=== PATIENT | male | born 1960 | race Caucasian/White ===

== ENCOUNTER 2019-12-05 07:06 | Inpatient (IN) | payer OTHER ==
[~2019-12-05] VITALS: Ht 175.3 cm; Wt 75.1 kg
[2019-12-05] MEDS ORDERED: [UNRECOGNIZED DRUG - OTHER] (07:20)
[2019-12-05] MEDS ORDERED: BP MED (07:20)
[2019-12-05] MEDS ORDERED: INHALER (07:20)
[2019-12-05] MEDS ORDERED: [UNRECOGNIZED DRUG - REMARK] (07:20)
[2019-12-05 08:09] LABS: APTT 32.9 SECONDS (22.8-39.4); INR 1.07 (0.85-1.17); PROTIME 13.9 SECONDS (11.6-15.0)
[2019-12-05 08:10] LABS: D-DIMER-QUANTITATIVE 1.26 ug/mLFEU (0.20-0.54); HEMATOCRIT 38.8 % (42.0-54.0); HEMOGLOBIN 12.7 g/dL (13.5-17.5); LYMPHOCYTES 9.7 % (15-50); MCH 32.2 pg (26.0-34.0); MCHC 32.7 g/dL (31.0-37.0); MCV 98.2 fL (80.0-100.0); MEAN PLATELET VOLUME 8.9 fL (7.4-10.4); NEUTROPHILS 84.4 % (40-80); PLATELET COUNT 267 10x3/uL (130-400); RBC 3.95 10x6/uL (4.20-6.10); RDW 13.2 % (11.5-14.5); WBC 10.9 10x3/uL (4.8-10.8)
[2019-12-05 08:15] LABS: CALC OSMOLALITY 277 mosm/kg (275-300); CARBON DIOXIDE 25.2 mmol/L (21.0-32.0); CHLORIDE - SERUM 105 mmol/L (98-107); CREATININE - SERUM 1.1 mg/dL (0.6-1.3); GLUCOSE 135 mg/dL (74-106); POTASSIUM - SERUM 4.2 mmol/L (3.5-5.1); SODIUM 137 mmol/L (136-145); UREA NITROGEN 17 mg/dL (7-18); eGFR NON AFRICAN AMERICAN 73 mL/min (90-120)
[2019-12-05 08:18] VITALS: BP 108/74
[2019-12-05 08:33] LABS: ALBUMIN 3.1 g/dL (3.4-5.0); ALKALINE PHOSPHATASE 113 U/L (30-120); ALT (SGPT) 71 U/L (10-68); BILIRUBIN - TOTAL 0.42 mg/dL (0.2-1.3); CKMB 2.6 U/L (0.0-3.6); CREATINE KINASE 60 UL (21-232); MAGNESIUM - SERUM 2.1 mg/dL (1.8-2.4); PRO BNP 2721 pg/mL (0-125)
[2019-12-05 08:44] LABS: TROPONIN-I < 0.017 ng/mL (0.000-0.060)
--- NOTE | 2019-12-05 12:23 | NUR ---
PT VOIDED 1000ML CLEAR YELLOW URINE. PT LAYING IN BED RESPIRATIONS ARE EVEN AND UNLABORED. NO DISTRESS NOTED. WILL CONTINUE TO MONITOR.
[2019-12-05 12:46] VITALS: BP 116/80
--- NOTE | 2019-12-05 14:26 | NUR ---
PATIENT ARRIVED TO UNIT VIA GERNERY AT THIS TIME. PATIENT PLACED IN DROPLET ISOLATION FOR COVID PUI UNTIL TEST RESULTS RECEIVED.
[2019-12-05 15:52] VITALS: BP 105/66
--- NOTE | 2019-12-05 17:37 | NUR ---
SHARON WITH LAB REPORTS COVID TEST NEGATIVE.
--- NOTE | 2019-12-05 17:48 | NUR ---
PATIENT NOTIFIED HIS COVID TEST IS NEGATIVE. PATIENT REMOVED FROM DROPLET ISOLATION.
[2019-12-05 20:28] VITALS: BP 103/64
[2019-12-05 21:18] LABS: BILIRUBIN NEGATIVE (NEGATIVE); GLUCOSE 1000 mg/dL (NEGATIVE); KETONE NEGATIVE (NEGATIVE); NITRITE NEGATIVE (NEGATIVE); SPECIFIC GRAVITY 1.015 (1.005-1.020); UROBILINOGEN NORMAL (NORMAL)
[2019-12-05 21:27] LABS: UDS - AMPHET POSITIVE QUAL (NEGATIVE); UDS - BARB NEGATIVE QUAL (NEGATIVE); UDS - BENZO NEGATIVE QUAL (NEGATIVE); UDS - COCAINE NEGATIVE QUAL (NEGATIVE); UDS - OPIATE NEGATIVE QUAL (NEGATIVE); UDS - PCP NEGATIVE QUAL (NEGATIVE); UDS - THC NEGATIVE QUAL (NEGATIVE)
[2019-12-06 05:00] VITALS: BP 102/65
[2019-12-06 06:44] LABS: HEMATOCRIT 40.2 % (42.0-54.0); HEMOGLOBIN 13.2 g/dL (13.5-17.5); LYMPHOCYTES 6.7 % (15-50); MCH 31.7 pg (26.0-34.0); MCHC 32.8 g/dL (31.0-37.0); MCV 96.6 fL (80.0-100.0); MEAN PLATELET VOLUME 8.7 fL (7.4-10.4); NEUTROPHILS 91.3 % (40-80); RBC 4.16 10x6/uL (4.20-6.10); RDW 13.4 % (11.5-14.5)
[2019-12-06 06:45] LABS: PLATELET COUNT 323 10x3/uL (130-400); WBC 15.9 10x3/uL (4.8-10.8)
--- NOTE | 2019-12-06 07:00 | NUR ---
RECEIVED REPORT. ASSUMED CARE OF PATIENT. PATIENT RESTING IN BED WITH EYES OPEN. RESP EVEN AND UNLABORED. CALL LIGHT WITHIN REACH. WHITE BOARD UPDATED. BEDSIDE SHIFT REPORT COMPLETE. PATIENT INQUIRING ABOUT AM MEAL TIMES. NO DISTRESS. DENIES ANY FURTHER NEEDS AT THIS TIME.
[2019-12-06 07:15] LABS: ALKALINE PHOSPHATASE 103 U/L (30-120); ALT (SGPT) 52 U/L (10-68); BILIRUBIN - TOTAL 0.44 mg/dL (0.2-1.3); C-REACTIVE PROTEIN 1.6 mg/dL (0.0-0.9); CALC OSMOLALITY 285 mosm/kg (275-300); CARBON DIOXIDE 25.4 mmol/L (21.0-32.0); CHLORIDE - SERUM 104 mmol/L (98-107); GLUCOSE 176 mg/dL (74-106); LDH 135 U/L (85-227); POTASSIUM - SERUM 4.2 mmol/L (3.5-5.1); SODIUM 139 mmol/L (136-145); TROPONIN-I < 0.017 ng/mL (0.000-0.060); UREA NITROGEN 23 mg/dL (7-18); eGFR NON AFRICAN AMERICAN 82 mL/min (90-120)
[2019-12-06 07:48] LABS: ERYTHROCYTE SEDIMENTATION RATE 33 mm/hr (0-20)
[2019-12-06 10:06] VITALS: BP 103/70
--- NOTE | 2019-12-06 12:39 | NUR ---
NO DISTRESS. OUTSIDE FOOD DELIVERED TO PATIENT. CALL LIGHT WITHIN REACH.
--- NOTE | 2019-12-06 14:19 | NUR ---
TRANSFERRED TO ROOM 2139. REPORT GIVEN TO NURSE ASSUMING CARE OF PATIENT.
[2019-12-06 18:06] VITALS: BP 118/73
--- NOTE | 2019-12-06 19:20 | NUR ---
I HAD VISITED ROOM EARLIER AND GAVE PRN FOR HEADACHE AT THIS TIME BED LOW AND LOCKED PT HAS CALL LIGHT NEED FOR WATER ADRESSWD ALSO
[2019-12-06 21:30] VITALS: BP 95/58
[2019-12-07 04:29] VITALS: BP 120/66
--- NOTE | 2019-12-07 06:30 | NUR ---
I have reviewed this patient and I concur with the Shift Assessment completed by the Licensed Practical Nurse today this shift.
[2019-12-07 06:50] LABS: HEMATOCRIT 40.1 % (42.0-54.0); HEMOGLOBIN 13.2 g/dL (13.5-17.5); LYMPHOCYTES 6.4 % (15-50); MCH 32.1 pg (26.0-34.0); MCHC 32.9 g/dL (31.0-37.0); MCV 97.6 fL (80.0-100.0); PLATELET COUNT 297 10x3/uL (130-400); RBC 4.11 10x6/uL (4.20-6.10); RDW 13.7 % (11.5-14.5); WBC 14.1 10x3/uL (4.8-10.8)
[2019-12-07 07:16] LABS: ANION GAP 11.3 mmol/L (8-16); CALCIUM 8.7 mg/dL (8.5-10.1); CREATININE - SERUM 1.1 mg/dL (0.6-1.3); MAGNESIUM - SERUM 2.2 mg/dL (1.8-2.4); POTASSIUM - SERUM 4.3 mmol/L (3.5-5.1)
--- NOTE | 2019-12-07 07:33 | NUR ---
REPORT RECIEVED. PT RESTING QUIETLY RR EVEN AND UNLABORED ON RA. PT HAS A R FA PIV THAT IS SL. BED LOCKED AND IN LOWEST POSITION, CALL LIGHT WITHIN REACH. WILL CTM
[2019-12-07 09:00] VITALS: BP 105/74
[2019-12-07 10:17] VITALS: Ht 175.3 cm; Wt 75.1 kg
[2019-12-07 12:00] VITALS: BP 116/76
[2019-12-07 15:00] VITALS: BP 125/70
--- NOTE | 2019-12-07 17:00 | NUR ---
I have reviewed this patient and I concur with the Shift Assessment completed by the Licensed Practical Nurse today this shift.
--- NOTE | 2019-12-07 19:18 | NUR ---
APPEARS RESTING WITH EYES CLOSED BED IS LOW AND LOCKED CALL LIGHT IS WITH PT
--- NOTE | 2019-12-07 19:50 | NUR ---
1950 PT REPORTS SOB BUT REFUSES TO WEAR O2 LCTA SPO2 99% PT ASKED FOR ICE WATER I INSTRUCTED TO SIP SLOWLY AND WILL GIVE LASIX EARLY PT IS EXPERIENCING SOB RIGHT AFTER 250 IV PIGGY BAG X2 DAYS NOW
[2019-12-07 21:21] VITALS: BP 106/70
[2019-12-08 00:39] VITALS: BP 99/64
--- NOTE | 2019-12-08 05:00 | NUR ---
I have reviewed this patient and I concur with the Shift Assessment completed by the Licensed Practical Nurse today this shift.
[2019-12-08 06:27] VITALS: BP 114/75
[2019-12-08 06:32] LABS: ANION GAP 15.5 mmol/L (8-16); CALCIUM 9.3 mg/dL (8.5-10.1); CARBON DIOXIDE 25.6 mmol/L (21.0-32.0); CREATININE - SERUM 1.1 mg/dL (0.6-1.3); MAGNESIUM - SERUM 2.4 mg/dL (1.8-2.4)
[2019-12-08 06:35] LABS: POTASSIUM - SERUM 5.1 mmol/L (3.5-5.1)
--- NOTE | 2019-12-08 07:30 | NUR ---
REPORT RECIEVED. PT SITTING FOLWERS IN BED. RR EVEN AND UNLABORED ON RA. PT HAS A R FA PIV THAT IS SL. BED LOCKED AND IN LOWEST POSITION, CALL LIGHT WITHIN REACH. WILL CTM
[2019-12-08 08:13] LABS: IMMUNOGLOBULIN A 168 mg/dL (90-386); IMMUNOGLOBULIN G 1366 mg/dL (603-1613); IMMUNOGLOBULIN M 150 mg/dL (20-172)
[2019-12-08 08:39] LABS: HEMATOCRIT 44.6 % (42.0-54.0); HEMOGLOBIN 14.4 g/dL (13.5-17.5); LYMPHOCYTES 5.7 % (15-50); MCH 31.6 pg (26.0-34.0); MCHC 32.3 g/dL (31.0-37.0); MCV 97.8 fL (80.0-100.0); MEAN PLATELET VOLUME 9.5 fL (7.4-10.4); NEUTROPHILS 91.2 % (40-80); PLATELET COUNT 345 10x3/uL (130-400); RBC 4.56 10x6/uL (4.20-6.10); RDW 13.8 % (11.5-14.5)
[2019-12-08 08:43] LABS: WBC 19.2 10x3/uL (4.8-10.8)
[2019-12-08 10:49] VITALS: BP 118/84
[2019-12-08 12:21] VITALS: BP 128/80
[2019-12-08] MEDS ORDERED: AZITHROMYCIN500 MG PO (16:34)
[2019-12-08] MEDS ORDERED: OMNICEF300 MG PO (16:35)
[2019-12-08] MEDS ORDERED: PREDNISONE10 MG PO (16:35)
[2019-12-08 16:40] VITALS: BP 120/78
[2019-12-08 17:09] LABS: ANA REFLEX - DIRECT Negative (Negative)
--- NOTE | 2019-12-08 17:24 | NUR ---
DC PAPERWORK GONE OVER AND SIGNED WITH PT. ALL QUESTIONS ANSWERED. PIV REMOVED CATH TIP FULLY INTACT. TELEMETRY REMOVED AND RETURNED TO SENIOR TEST ANALYST. ALL VALUBLES TAKEN WITH PT. PT WHEELED TO ER ENTRANCE, FRIEND TO TAKE PT HOME.
[2019-12-09 11:11] LABS: PROCALCITONIN 0.07 ng/mL (0.00-0.08)
[2019-12-10 09:13] LABS: IMMUNOGLOBULIN E 170 IU/mL (6-495)
== END 2019-12-08 17:27 | disposition home or self-care (01) | DRG 291 ==
LOC: D.ER 07:06 → D.M2 13:18
PROVIDERS: Family Medicine; Internal Medicine Pulmonary Disease; ADMIT Family Medicine; ATTEND Family Medicine
DX: I50.21 Acute systolic (congestive) heart failure (principal); J18.9 Pneumonia, unspecified organism; J96.01 Acute respiratory failure with hypoxia; J44.0 Chronic obstructive pulmonary disease with (acute) lower respiratory infection; J44.1 Chronic obstructive pulmonary disease with (acute) exacerbation; I42.9 Cardiomyopathy, unspecified; J98.11 Atelectasis; K21.9 Gastro-esophageal reflux disease without esophagitis; D64.9 Anemia, unspecified

== ENCOUNTER 2020-02-05 16:10 | Emergency (ER) | payer OTHER ==
[~2020-02-05] VITALS: Ht 175.3 cm; Wt 72.8 kg
[~2020-02-05 16:10] MED LIST: AZITHROMYCIN500 MG PO; BP MED; INHALER; OMNICEF300 MG PO; PREDNISONE10 MG PO; [UNRECOGNIZED DRUG - OTHER]; [UNRECOGNIZED DRUG - REMARK]
[2020-02-05 16:12] VITALS: Ht 175.3 cm; Wt 72.8 kg
[2020-02-05 17:00] LABS: BASOPHILS 0.2 % (0-2); EOSINOPHILS 1.9 % (0-7); HEMATOCRIT 39.7 % (42.0-54.0); HEMOGLOBIN 12.8 g/dL (13.5-17.5); IMMATURE GRANULOCYTES 0.2 % (0-5); LYMPHOCYTES 18.1 % (15-50); MCH 31.4 pg (26.0-34.0); MCHC 32.2 g/dL (31.0-37.0); MCV 97.5 fL (80.0-100.0); MEAN PLATELET VOLUME 9.5 fL (7.4-10.4); MONOCYTES 5.4 % (2-11); NEUTROPHILS 74.2 % (40-80); PLATELET COUNT 294 10x3/uL (130-400); RBC 4.07 10x6/uL (4.20-6.10); RDW 14.3 % (11.5-14.5)
[2020-02-05 17:09] LABS: APTT 31.8 SECONDS (22.8-39.4); INR 1.14 (0.85-1.17); PROTIME 14.5 SECONDS (11.6-15.0)
[2020-02-05 17:10] LABS: CALC OSMOLALITY 286 mosm/kg (275-300); CALCIUM 8.4 mg/dL (8.5-10.1); CARBON DIOXIDE 25.3 mmol/L (21.0-32.0); CHLORIDE - SERUM 105 mmol/L (98-107); CREATININE - SERUM 1.2 mg/dL (0.6-1.3); D-DIMER-QUANTITATIVE 1.42 ug/mLFEU (0.20-0.54); GLUCOSE 173 mg/dL (74-106); POTASSIUM - SERUM 4.5 mmol/L (3.5-5.1); SODIUM 139 mmol/L (136-145); UREA NITROGEN 26 mg/dL (7-18); eGFR NON AFRICAN AMERICAN 66 mL/min (90-120)
[2020-02-05 17:26] LABS: ALBUMIN 3.1 g/dL (3.4-5.0); ALKALINE PHOSPHATASE 92 U/L (30-120); ALT (SGPT) 61 U/L (10-68); BILIRUBIN - TOTAL 0.45 mg/dL (0.2-1.3); CKMB 1.6 U/L (0.0-3.6); CREATINE KINASE 31 UL (21-232); PRO BNP 5283 pg/mL (0-125); PROTEIN - SERUM 6.9 g/dL (6.4-8.2); TROPONIN-I 0.016 ng/mL (0.000-0.060)
[2020-02-05 18:12] VITALS: BP 107/80
[2020-02-05] MEDS ORDERED: KLONOPIN0.5 MG PO (19:15)
[2020-02-05] MEDS ORDERED: LEVAQUIN750 MG PO (19:15)
== END 2020-02-05 20:17 | disposition home or self-care (01) ==
LOC: D.ER 16:10
PROVIDERS: Family Medicine
DX: J18.8 Other pneumonia, unspecified organism (principal); R06.02 Shortness of breath; I50.9 Heart failure, unspecified

== ENCOUNTER → 2020-02-10 12:44 | Outpatient (CLI) | payer OTHER ==
[2020-02-05 16:12] VITALS: BMI 23.7
[~2020-02-10 12:44] MED LIST changes: +ATARAX 25 MG TA25 MG; +COREG12.5 MG; +FUROSEMIDE40 MG; +K-DUR20 MEQ; +KLONOPIN0.5 MG PO; +LEVAQUIN750 MG PO; +OMEPRAZOLE20 M1; +SYMBICORT 16010.2 GM; +TOPROL XL50 MG; +XOPENEX HFA15 GM
== END | disposition home or self-care (01) ==
LOC: D.HCCECHO 12:44
PROVIDERS: ATTEND Internal Medicine Cardiovascular Disease
DX: I50.9 Heart failure, unspecified (principal)

== ENCOUNTER 2020-02-12 11:57 | Emergency (ER) | payer OTHER ==
[~2020-02-12] VITALS: Ht 175.3 cm; Wt 75.0 kg
[~2020-02-12 11:57] MED LIST changes: -ATARAX 25 MG TA25 MG; -COREG12.5 MG; -FUROSEMIDE40 MG; -K-DUR20 MEQ; -OMEPRAZOLE20 M1; -SYMBICORT 16010.2 GM; -TOPROL XL50 MG; -XOPENEX HFA15 GM
[2020-02-12 12:03] VITALS: Ht 175.3 cm; Wt 75.0 kg
[2020-02-12 12:15] LABS: BASOPHILS 0.3 % (0-2); EOSINOPHILS 3.2 % (0-7); HEMATOCRIT 38.5 % (42.0-54.0); HEMOGLOBIN 12.4 g/dL (13.5-17.5); IMMATURE GRANULOCYTES 0.1 % (0-5); LYMPHOCYTES 20.5 % (15-50); MCH 31.2 pg (26.0-34.0); MCHC 32.2 g/dL (31.0-37.0); MCV 96.7 fL (80.0-100.0); MEAN PLATELET VOLUME 9.7 fL (7.4-10.4); MONOCYTES 7.8 % (2-11); NEUTROPHILS 68.1 % (40-80); RBC 3.98 10x6/uL (4.20-6.10); RDW 14.7 % (11.5-14.5); WBC 8.7 10x3/uL (4.8-10.8)
[2020-02-12] MEDS ORDERED: K-DUR20 MEQ (12:15)
[2020-02-12] MEDS ORDERED: TOPROL XL50 MG (12:16)
[2020-02-12] MEDS ORDERED: FUROSEMIDE40 MG (12:16)
[2020-02-12] MEDS ORDERED: COREG12.5 MG (12:17)
[2020-02-12] MEDS ORDERED: ATARAX 25 MG TA25 MG (12:17)
[2020-02-12] MEDS ORDERED: OMEPRAZOLE20 M1 (12:18)
[2020-02-12] MEDS ORDERED: SYMBICORT 16010.2 GM (12:18)
[2020-02-12] MEDS ORDERED: XOPENEX HFA15 GM (12:19)
[2020-02-12 12:22] LABS: CALC OSMOLALITY 287 mosm/kg (275-300); CALCIUM 9.4 mg/dL (8.5-10.1); CARBON DIOXIDE 25.4 mmol/L (21.0-32.0); CHLORIDE - SERUM 105 mmol/L (98-107); CREATININE - SERUM 1.2 mg/dL (0.6-1.3); GLUCOSE 147 mg/dL (74-106); SODIUM 139 mmol/L (136-145); UREA NITROGEN 31 mg/dL (7-18); eGFR NON AFRICAN AMERICAN 66 mL/min (90-120)
[2020-02-12 12:24] LABS: INR 1.31 (0.85-1.17); PROTIME 16.2 SECONDS (11.6-15.0)
[2020-02-12 12:25] LABS: APTT 32.3 SECONDS (22.8-39.4)
[2020-02-12 12:34] LABS: PLATELET COUNT 231 10x3/uL (130-400)
[2020-02-12 12:48] LABS: ALBUMIN 3.1 g/dL (3.4-5.0); ALKALINE PHOSPHATASE 104 U/L (30-120); ALT (SGPT) 150 U/L (10-68); BILIRUBIN - TOTAL 0.38 mg/dL (0.2-1.3); CKMB 1.3 U/L (0.0-3.6); CREATINE KINASE 53 UL (21-232); PRO BNP 7250 pg/mL (0-125); PROTEIN - SERUM 6.8 g/dL (6.4-8.2); TROPONIN-I < 0.017 ng/mL (0.000-0.060)
[2020-02-12 15:50] VITALS: BP 101/78
== END 2020-02-12 20:30 | disposition home or self-care (01) ==
LOC: D.ER 11:57
PROVIDERS: Family Medicine
DX: R06.02 Shortness of breath (principal); I50.9 Heart failure, unspecified

== ENCOUNTER 2020-02-22 13:32 | Inpatient (IN) | payer OTHER ==
[~2020-02-22] VITALS: Ht 175.3 cm; Wt 84.1 kg
[~2020-02-22 13:32] MED LIST changes: +ATARAX 25 MG TA25 MG; +COREG12.5 MG; +FUROSEMIDE40 MG PO; +K-DUR20 MEQ PO; +OMEPRAZOLE20 M1; +SYMBICORT 16010.2 GM; +TOPROL XL50 MG; +XOPENEX HFA15 GM
[2020-02-22 14:55] LABS: BASOPHILS 0.4 % (0-2); EOSINOPHILS 4.8 % (0-7); HEMATOCRIT 43.9 % (42.0-54.0); HEMOGLOBIN 13.9 g/dL (13.5-17.5); IMMATURE GRANULOCYTES 0.2 % (0-5); LYMPHOCYTES 15.9 % (15-50); MCH 30.9 pg (26.0-34.0); MCHC 31.7 g/dL (31.0-37.0); MCV 97.6 fL (80.0-100.0); MEAN PLATELET VOLUME 9.8 fL (7.4-10.4); MONOCYTES 5.3 % (2-11); NEUTROPHILS 73.4 % (40-80); RDW 14.9 % (11.5-14.5)
[2020-02-22 15:03] LABS: PLATELET COUNT 353 10x3/uL (130-400)
[2020-02-22 15:28] LABS: INR 1.04 (0.85-1.17); PROTIME 13.5 SECONDS (11.6-15.0)
[2020-02-22 15:29] LABS: APTT 32.8 SECONDS (22.8-39.4)
[2020-02-22 15:31] LABS: ALBUMIN 3.4 g/dL (3.4-5.0); ANION GAP 6.6 mmol/L (8-16); BILIRUBIN - TOTAL 0.51 mg/dL (0.2-1.3); CALCIUM 8.8 mg/dL (8.5-10.1); CARBON DIOXIDE 32.7 mmol/L (21.0-32.0); CREATININE - SERUM 1.2 mg/dL (0.6-1.3); PHOSPHOROUS 3.5 mg/dL (2.5-4.9); POTASSIUM - SERUM 4.3 mmol/L (3.5-5.1); PROTEIN - SERUM 7.9 g/dL (6.4-8.2); T4 THYROXIN - FREE 1.07 ng/dL (0.76-1.46); THYROID STIMULATING HORMONE 2.02 uIU/mL (0.36-3.74); URIC ACID 6.1 mg/dL (2.6-7.2)
[2020-02-22 16:04] LABS: BILIRUBIN NEGATIVE (NEGATIVE); KETONE NEGATIVE (NEGATIVE); NITRITE NEGATIVE (NEGATIVE); UROBILINOGEN NORMAL mg/dL (< 2)
[2020-02-29] VITALS (42 sets, daily range): BP systolic 97–139; BP diastolic 53–94; BMI 24.7; BMI 24.4
[2020-02-29 15:23] LABS: BASOPHILS 0 % (0-2); EOSINOPHILS 0 % (0-7); HEMATOCRIT 25.4 % (42.0-54.0); IMMATURE GRANULOCYTES 0.1 % (0-5); LYMPHOCYTES 9.8 % (15-50); MCH 30.4 pg (26.0-34.0); MCHC 31.5 g/dL (31.0-37.0); MCV 96.6 fL (80.0-100.0); MEAN PLATELET VOLUME 9.1 fL (7.4-10.4); NEUTROPHILS 85.1 % (40-80); RBC 2.63 10x6/uL (4.20-6.10); RDW 15.1 % (11.5-14.5); WBC 9.2 10x3/uL (4.8-10.8)
[2020-02-29 15:25] LABS: PLATELET COUNT 214 10x3/uL (130-400)
[2020-02-29 15:32] LABS: INR 1.37 (0.85-1.17); PROTIME 16.7 SECONDS (11.6-15.0)
--- NOTE | 2020-02-29 17:40 | NUR ---
1400 PT ARRIVED TO UNIT, MONITORS ATTACHED, LINES ZERO'ED. 1410 XRAY AT BEDSIDE - ASSISTED WITH CXR. 1417 DR WHEATLEY AT BEDSIDE, ADJUSTING S-G CATH. 1421 CONTINUES AT BEDSIDE ADJUSTING S-G CATH, ORDERS JORDYN OFF. 1433 LEVO DECREASED TO 0.02 MCK/KG/MIN. [address] WHEATLEY CONTINUES AT BEDSIDE, CXR X2 COMPLETED AND ORDERS TO TURN OF S-G MONITORING NOT PLACED CORRECTLY PER DR WHEATLEY. 1510 PER ABG RESULTS, K+ LOW AND H&H LOW, VERBAL ORDERS FOR 20 MEW K+ IV OVER 1 HOUR AND 1 UNIT PRBC, THIS WAS IMPLEMENTED. [address] KEENE ON UNIT, ORDERS RECIEVED TO START FENTANYL TITRATION INFUSION, 25-200 MCG/HR. 1700 VASOPRESSIN DECRESED TO 0.05. 1721 VASOPRESSIN DECREASED TO 0.04. 1733 DR WHEATLEY NOTIFIED THAT IABP MEAN AT 99, UPDATED ON GTT'S, ORDERS TO CUT VASOPRESSING IN HALF RECIEVED.
--- NOTE | 2020-02-29 19:02 | NUR ---
1807 DR WHEATLEY UPDATED, ORDERS TO DECREASE VASOPRESSIN TO 0.01 UNITS/HR RECIEVED AND COMPLETED.
--- NOTE | 2020-02-29 19:06 | NUR ---
UPDATED DR WHEATLEY, ORDERS FOR STAT ABG ABTAINED. RT NOTIFIED.
--- NOTE | 2020-02-29 19:23 | NUR ---
NOTIFIED DR WHEATLEY OF STAT ABG RESULTS, RECIEVED ORDERS TO STOP VASOPRESSIN AND DECREASE EPINEPHRINE GTT
[2020-03-01] VITALS (96 sets, daily range): BP systolic 87–136; BP diastolic 58–79; Ht 175.3 cm; Wt 84.1 kg
[2020-03-01 05:17] LABS: BASOPHILS 0.2 % (0-2); EOSINOPHILS 0.2 % (0-7); HEMATOCRIT 28.4 % (42.0-54.0); IMMATURE GRANULOCYTES 0.1 % (0-5); LYMPHOCYTES 10.8 % (15-50); MCH 29.6 pg (26.0-34.0); MCHC 31.7 g/dL (31.0-37.0); MEAN PLATELET VOLUME 9.3 fL (7.4-10.4); MONOCYTES 8.9 % (2-11); NEUTROPHILS 79.8 % (40-80); PLATELET COUNT 172 10x3/uL (130-400); RBC 3.04 10x6/uL (4.20-6.10); RDW 16.9 % (11.5-14.5); WBC 8.7 10x3/uL (4.8-10.8)
[2020-03-01 05:22] LABS: MCV 93.4 fL (80.0-100.0)
[2020-03-01 05:25] LABS: ALBUMIN 2.9 g/dL (3.4-5.0); ALKALINE PHOSPHATASE 67 U/L (30-120); ALT (SGPT) 32 U/L (10-68); CALC OSMOLALITY 288 mosm/kg (275-300); CALCIUM 7.9 mg/dL (8.5-10.1); CARBON DIOXIDE 30.5 mmol/L (21.0-32.0); CHLORIDE - SERUM 109 mmol/L (98-107); CREATININE - SERUM 0.9 mg/dL (0.6-1.3); GLUCOSE 145 mg/dL (74-106); MAGNESIUM - SERUM 2.4 mg/dL (1.8-2.4); POTASSIUM - SERUM 3.7 mmol/L (3.5-5.1); PROTEIN - SERUM 5.9 g/dL (6.4-8.2); SODIUM 142 mmol/L (136-145); UREA NITROGEN 22 mg/dL (7-18); eGFR NON AFRICAN AMERICAN > 90 mL/min (90-120)
--- NOTE | 2020-03-01 06:00 | NUR ---
DR WHEATLEY UPDATED ON PT CONDITION, ORDERS RECIEVED TO STOP EPI GTT AND GIVE 250CC NS BOLUS
--- NOTE | 2020-03-01 07:54 | NUR ---
DR WHEATLEY IN ROOM, CHANGED IABP TO 1:2 AND ORDERED MILRINONE TO 0.375 MCK/KG/MIN. UNASSISTED 104/65, ASSISTED 98/60 MEAN 86 DEC. 118.
--- NOTE | 2020-03-01 10:34 | NUR ---
FARHAD العلي NOTIFIED OF DECREASED UOP.
--- NOTE | 2020-03-01 10:41 | NUR ---
FARHAD IN PT ROOM ASSESSING.
--- NOTE | 2020-03-01 11:35 | NUR ---
NOTIFIED FARHAD العلي OF CONTINUED DECREASED UOP, STATED SHE WOULD NOTIFY DR WHEATLEY.
--- NOTE | 2020-03-01 12:00 | NUR ---
NOTIFIED FARHAD العلي OF CURRENT HOUR UOP OF 34ML.
--- NOTE | 2020-03-01 12:26 | NUR ---
PER FARHAD العلي, DR WHEATLEY ORDERED 250ML NS BOLUS.
--- NOTE | 2020-03-01 14:05 | NUR ---
NOTIFIED FARHAD العلي OF LOW UOP.
--- NOTE | 2020-03-01 15:10 | NUR ---
FARHAD العلي NOTIFIED OF LOW UOP.
--- NOTE | 2020-03-01 16:01 | OP ---
PATIENT NAME: SHAMA CHAU MEDICAL RECORD: [id number] :62 LOCATION:[facility] ADMISSION DATE:02/29/20 SURGEON: ARMIN WHEATLEY MD DATE OF OPERATION: 02/29/2020 SURGEON: Armin Wheatley MD PROCEDURES PERFORMED: 1. Aortic valve replacement, 21 mm pericardial bioprosthesis. 2. Mitral valve annuloplasty 32 mm Physio. 3. Tricuspid valve annuloplasty. 4. Insertion of intraaortic balloon pump percutaneously via left common femoral artery utilizing ultrasound guidance, attempted micropuncture access right common femoral artery with ultrasound guidance, unsuccessful. PREOPERATIVE DIAGNOSES: Aortic stenosis, nonischemic cardiomyopathy, mitral regurgitation, tricuspid regurgitation, and chronic obstructive pulmonary disease. POSTOPERATIVE DIAGNOSES: Aortic stenosis, nonischemic cardiomyopathy, mitral regurgitation, tricuspid regurgitation, and chronic obstructive pulmonary disease. ANESTHESIA: General endotracheal anesthesia. ESTIMATED BLOOD LOSS: Total cardiopulmonary bypass with Cell Saver retransfusion, 4 FFP, 2 platelets. COMPLICATIONS: None. CONDITION: Critical. DISPOSITION: CV ICU. OPERATIVE FINDINGS: 1. Transesophageal echocardiography revealed severe aortic stenosis, worse than expected from preoperative transthoracic echo, severe central mitral regurgitation with good leaflet mobility and severe tricuspid regurgitation. Ejection fraction 25%. 2. Intraoperatively calcified aortic valve leaflets with mostly preserved annulus, anatomically normal mitral valve with moderate dilatation. No significant dilated left ventricular cavity and anatomically normal tricuspid valve. 3. Separation from cardiopulmonary bypass with no perivalvular aortic insufficiency, no significant mitral and tricuspid regurgitation. After reversal of anticoagulation and about 30 minutes cardiopulmonary bypass, there was worsening mitral regurgitation after transfusions. INDICATION: Aortic stenosis, mitral regurgitation, severe dyspnea, and tricuspid regurgitation. PROCEDURE IN DETAIL: The patient was brought to the operative suite. General anesthesia was obtained, the patient was prepped and draped. Attempt was made under ultrasound guidance, right common femoral artery, unsuccessful cannulation. Left side, cannulated single stick. The percutaneous balloon was OPERATIVE REPORT [id number] SHAMA CHAU placed. It had good augmentation. A median sternotomy incision was made. Subcutaneous tissue divided with electrocautery. Sternum was divided with a saw. The pericardium was opened. Heparin was given. Aorta was cannulated. Bicaval cannulation was performed. Activated clotting time was appropriately elevated. The patient was placed on cardiopulmonary bypass. Retrograde cardioplegic cannula was inserted. The patient was cooled. Cardioplegia was given antegrade through a 14-gauge angiocatheter after aortic clamping. Interatrial groove was dissected out and the mitral valve was identified and visualized. The aortotomy was performed. The aortic valve was visualized. Leaflets were removed. The valve was sized to the appropriate size. Interrupted pledgeted sutures were placed for ventricular aortic side. The valve was carefully lowered into place. All sutures were tied. Then, the mitral valve was visualized. Sized with appropriate ring sizer. After inspecting the valve and the valve was placed. Caval tapes were used and the right atrium was opened. Tricuspid ring was sized to the appropriate size. Interrupted sutures were placed. Ring was lowered in to place. No regurgitation. Right atrium was closed. Caval tapes were removed. The patient was rewarmed. The aortotomy was closed. Mitral valve incision was closed. The patient was deaired. Crossclamp was removed. The patient was paced and was eventually resumed a spontaneous rhythm, fully rewarmed, weaned from cardiopulmonary bypass and was stable. The patient was decannulated. Superior vena cava cannulation site in the right atrial appendage and the aortotomy were oversewn. Protamine was given. Thorough irrigation was undertaken and hemostasis was assured. A drain was placed in the mediastinum and both pleural cavities. Both pleural cavities were evacuated and there was a significant effusion. Sternum was closed with wires. Fascia was closed. Subcutaneous tissue was closed. Skin was closed. Dermabond was placed. The needle and sponge counts were reported as correct. The patient was taken to ICU. TRANSINT:[id number] Voice Confirmation ID: [id number] DOCUMENT ID: [id number] ARMIN WHEATLEY MD at 1601 CC: DELL KING M.D. and PARAS ROWE [id number] DICTATION DATE: 02/29/20 1553 COOK CHILI: 03/01/20 0042 [facility] IN [facility] [address] [id number]
--- NOTE | 2020-03-01 18:27 | NUR ---
1610 DR WHEATLEY IN ROOM UPDATED SET UP FOR IABP TO BE PULLED ORDERED. [address] DIONI MD HELD PRESSURE TOLL 1623 THEN THIS RN TOOK OVER PRESSURE TO 1640. DOPPLER CHECK OF PEDAL PULSE Q3MIN FOR DURRATION OF PRESSURE HELD. NO BLEEDING NOTED AT SITE AND NO HEMATOMA NOTED AT 1640, PRESSURE DRESSING APPLIED OF 4X4'S AND TEGADERM. 1700 DR KEENE AT BEDSIDE, UPDATE PROVIDED. PER DR KEENE, KEEP SEDATED OVERNIGHT AND WILL WEAN VENT IN AM.
--- NOTE | 2020-03-01 18:32 | NUR ---
1730 PER FARHAD العلي, DR WHEATLEY IS AWARE OF DECREASED UOP AND WANTS TO BE NOTIFIED OF UOP OF 20ML/HR OR LESS FOR TWO CONSECUTIVE HOURS.
--- NOTE | 2020-03-01 20:35 | NUR ---
NOTIFIED DR WHEATLEY OF DECREASED URINE OUTPUT, ORDERS RECIEVED FOR LASIX 80 MG IV
[2020-03-02] VITALS (45 sets, daily range): BP systolic 104–146; BP diastolic 53–82
[2020-03-02 05:26] LABS: BASOPHILS 0.3 % (0-2); EOSINOPHILS 0.7 % (0-7); HEMATOCRIT 28.9 % (42.0-54.0); HEMOGLOBIN 9.3 g/dL (13.5-17.5); IMMATURE GRANULOCYTES 0.4 % (0-5); MCH 30.3 pg (26.0-34.0); MCHC 32.2 g/dL (31.0-37.0); MCV 94.1 fL (80.0-100.0); MEAN PLATELET VOLUME 9.7 fL (7.4-10.4); MONOCYTES 9.3 % (2-11); NEUTROPHILS 76.3 % (40-80); PLATELET COUNT 164 10x3/uL (130-400); RBC 3.07 10x6/uL (4.20-6.10); WBC 9.6 10x3/uL (4.8-10.8)
[2020-03-02 05:42] LABS: ALBUMIN 2.6 g/dL (3.4-5.0); ALKALINE PHOSPHATASE 72 U/L (30-120); ALT (SGPT) 26 U/L (10-68); BILIRUBIN - TOTAL 0.65 mg/dL (0.2-1.3); CALC OSMOLALITY 291 mosm/kg (275-300); CALCIUM 7.9 mg/dL (8.5-10.1); CARBON DIOXIDE 29.6 mmol/L (21.0-32.0); CHLORIDE - SERUM 107 mmol/L (98-107); CREATININE - SERUM 0.9 mg/dL (0.6-1.3); GLUCOSE 149 mg/dL (74-106); MAGNESIUM - SERUM 2.3 mg/dL (1.8-2.4); POTASSIUM - SERUM 3.5 mmol/L (3.5-5.1); PROTEIN - SERUM 6.1 g/dL (6.4-8.2); SODIUM 144 mmol/L (136-145); UREA NITROGEN 19 mg/dL (7-18); eGFR NON AFRICAN AMERICAN > 90 mL/min (90-120)
--- NOTE | 2020-03-02 11:43 | OP ---
PATIENT NAME: SHAMA CHAU MEDICAL RECORD: [id number] :62 LOCATION:[facility] ADMISSION DATE:02/29/20 SURGEON: FRANCIS WHEATLEY MD DATE OF OPERATION: 03/01/2020 SURGEON: Francis Wheatley MD PROCEDURE: Percutaneous removal of intraaortic balloon pump. PROCEDURE NOTE: With the patient supine in intensive care unit sedated and monitored, the sutures holding the intraaortic balloon pump were removed. Doppler left dorsalis pedis was audible. Catheter was removed intact without difficulty. Pressure was held. No apparent complications. Doppler left pedal pulses. NTS:[id number] Voice Confirmation ID: [id number] DOCUMENT ID: [id number] FRANCIS WHEATLEY MD at 1143 CC: [id number] DICTATION DATE: 03/01/20 1631 EX CHEF: 03/02/20 0056 ADM IN [facility] [address] [place] [address]
[2020-03-03] VITALS (20 sets, daily range): BP systolic 94–134; BP diastolic 56–86
[2020-03-03 06:07] LABS: BASOPHILS 0.1 % (0-2); EOSINOPHILS 1.2 % (0-7); HEMATOCRIT 27.8 % (42.0-54.0); HEMOGLOBIN 8.9 g/dL (13.5-17.5); IMMATURE GRANULOCYTES 0.2 % (0-5); MCH 29.9 pg (26.0-34.0); MCV 93.3 fL (80.0-100.0); MEAN PLATELET VOLUME 9.9 fL (7.4-10.4); MONOCYTES 9.3 % (2-11); NEUTROPHILS 80.2 % (40-80); PLATELET COUNT 152 10x3/uL (130-400); RBC 2.98 10x6/uL (4.20-6.10); RDW 16.1 % (11.5-14.5); WBC 9.2 10x3/uL (4.8-10.8)
[2020-03-03 06:32] LABS: ALBUMIN 2.6 g/dL (3.4-5.0); ALKALINE PHOSPHATASE 75 U/L (30-120); ALT (SGPT) 29 U/L (10-68); BILIRUBIN - TOTAL 1.08 mg/dL (0.2-1.3); CALC OSMOLALITY 272 mosm/kg (275-300); CALCIUM 8.1 mg/dL (8.5-10.1); CARBON DIOXIDE 28.9 mmol/L (21.0-32.0); CHLORIDE - SERUM 98 mmol/L (98-107); CREATININE - SERUM 0.8 mg/dL (0.6-1.3); GLUCOSE 141 mg/dL (74-106); MAGNESIUM - SERUM 2.1 mg/dL (1.8-2.4); POTASSIUM - SERUM 3.3 mmol/L (3.5-5.1); PROTEIN - SERUM 6.2 g/dL (6.4-8.2); SODIUM 134 mmol/L (136-145); UREA NITROGEN 21 mg/dL (7-18); eGFR NON AFRICAN AMERICAN > 90 mL/min (90-120)
--- NOTE | 2020-03-03 08:00 | NUR ---
MILRINONE DECREASED TO 0.25 MCG/KG/MIN AND A-LINE DISCONTINUED. PATIENT TOLERATED WELL.
--- NOTE | 2020-03-03 08:40 | NUR ---
PT REFUSED BREAKFAST, STATES HE WAS FEELING NAUSEOUS, ADMINISTERED ZOFRAN PER ORDERS. ASSISTED TO FILL OUT MENU FOR REST OF DAY. HEMODYNAMICALLY STABLE AT THIS TIME, WILL CONTINUE TO MONITOR.
--- NOTE | 2020-03-03 12:30 | NUR ---
ARTERIAL CATHETER AND CVP MONITORING D/C'D.
--- NOTE | 2020-03-03 13:00 | NUR ---
CHEST TUBES X [address] WHEATLEY. 2MG MORPHINE GIVEN IV PRIOR TO REMOVAL. RESTING IN BED WITH HOB UP 30 DEGREES.
--- NOTE | 2020-03-03 17:14 | NUR ---
REFUSED SUPPER. SLEEPING QUIETLY FOR LONG PERIODS THIS AFTERNOON. MOANING AND REPEATING "OH GOD" AT THIS TIME.
--- NOTE | 2020-03-03 17:40 | NUR ---
MORPHINE 2MG IVP ADMINISTERED FOR CONTINUOUS MOANING, COUGHING, C/O PAIN.
--- NOTE | 2020-03-03 18:25 | NUR ---
SPO2 DECREASED TO 88. O2 INCREASED TO 3L/M VIA NC. COUGHING LESS NOW.
[2020-03-04] VITALS (19 sets, daily range): BP systolic 95–135; BP diastolic 61–91
[2020-03-04 06:41] LABS: BASOPHILS 0.1 % (0-2); EOSINOPHILS 2.6 % (0-7); HEMATOCRIT 29.4 % (42.0-54.0); HEMOGLOBIN 9.3 g/dL (13.5-17.5); IMMATURE GRANULOCYTES 0.4 % (0-5); LYMPHOCYTES 11.9 % (15-50); MCH 29.8 pg (26.0-34.0); MCHC 31.6 g/dL (31.0-37.0); MCV 94.2 fL (80.0-100.0); MEAN PLATELET VOLUME 10.1 fL (7.4-10.4); MONOCYTES 11.9 % (2-11); NEUTROPHILS 73.1 % (40-80); PLATELET COUNT 120 10x3/uL (130-400); RBC 3.12 10x6/uL (4.20-6.10); RDW 15.5 % (11.5-14.5); WBC 7.4 10x3/uL (4.8-10.8)
[2020-03-04 06:44] LABS: ALBUMIN 2.5 g/dL (3.4-5.0); ALKALINE PHOSPHATASE 78 U/L (30-120); ALT (SGPT) 83 U/L (10-68); BILIRUBIN - TOTAL 0.56 mg/dL (0.2-1.3); CALC OSMOLALITY 268 mosm/kg (275-300); CALCIUM 8.3 mg/dL (8.5-10.1); CHLORIDE - SERUM 95 mmol/L (98-107); CREATININE - SERUM 0.8 mg/dL (0.6-1.3); GLUCOSE 222 mg/dL (74-106); MAGNESIUM - SERUM 2.3 mg/dL (1.8-2.4); POTASSIUM - SERUM 4.1 mmol/L (3.5-5.1); PROTEIN - SERUM 6.3 g/dL (6.4-8.2); SODIUM 129 mmol/L (136-145); UREA NITROGEN 22 mg/dL (7-18); eGFR NON AFRICAN AMERICAN > 90 mL/min (90-120)
--- NOTE | 2020-03-04 08:55 | TEE ---
PATIENT:SHAMA CHAU MEDICAL RECORD: [id number] LOCATION:[place] [address] AGE OF PATIENT: 59 ADMISSION DATE: 02/29/20 SEX: M REFERRING PHYSICIAN: INTERPRETING PHYSICIAN: NORMAN NASH MD TRANSESOPHAGEAL ECHOCARDIOGRAM Date: 02/29/20 LORETTA CHARGE Y INDICATIONS: AVR, TVR, MVR PREMEDICATIONS: PATIENT'S RESPONSE PROCEDURE DOPPLER MEASUREMENTS: LVIT LA PA RA LVOT RVOT Asc. Ao AV Gradient Peak AV Mean AV Area MV Gradient Peak MV Mean MV Area INTERPRETATION: Doppler: 2-D: COLOR FLOW DOPPLER NORMAL SALINE STUDY: MISCELLANOUS: DIAGNOSIS: PLAN: Staff Reporter:3 Dr. Davenport Training Generalist: Tim SUN COMMENTS: DATE OF SERVICE: 03/01/2020 PROCEDURE: Intraoperative LORETTA. Preoperatively shows LV is globally hypokinetic with reduced EF, estimated at 30%. Aortic valve has moderate calcification. Mild AI. Left atrium appears normal. Moderate TR. Mitral valve is redundant with moderate MR. There is moderate TR. Postoperatively, EF appears to be globally hypokinetic with reduced EF at 30% to 35%. Prosthetic tissue aortic valve is functioning TRANSESOPHAGEAL ECHOCARDIOGRAM REPORT [id number] SHAMA CHAU appropriately with good valve excursion. There is no significant AI. Mitral valve shows mild MR. Trace mild TR. TRANSINT:[id number] Voice Confirmation ID: [id number] DOCUMENT ID: [id number] at 0855 CC: [id number] DICTATION DATE: 03/01/20 1519 PLANISHING PRESS OPERATOR: 03/02/20 0834 ADM IN [place] [id number] [place] [address]
--- NOTE | 2020-03-04 14:48 | NUR ---
Nutrition Follow-up: Diet: Regular PO intake: none recorded in EMR. Spoke with patient at bedside who states that he ate almost all of his breakfast tray. He ate 0% of lunch. States that his chest tube was removed today which is causing him a great deal of pain. He states that he does not like Ensure or Boost oral nutrition supplements. Last BM: none recorded since admit x 4 days. Wt: 185# (03/04/20); Admit 167# Meds noted: k-dur, probiotics, senokot. Labs noted: Na 129(L), POC Glu 180(H) Recommend continue current diet. Hopefully patient's appetite will increase as pain subsides. RD following.
[2020-03-05] VITALS (23 sets, daily range): BP systolic 95–137; BP diastolic 49–81
[2020-03-05 06:49] LABS: BASOPHILS 0.3 % (0-2); EOSINOPHILS 3.5 % (0-7); HEMATOCRIT 30.7 % (42.0-54.0); HEMOGLOBIN 9.6 g/dL (13.5-17.5); IMMATURE GRANULOCYTES 0.4 % (0-5); LYMPHOCYTES 12.3 % (15-50); MCH 29.4 pg (26.0-34.0); MCHC 31.3 g/dL (31.0-37.0); MCV 94.2 fL (80.0-100.0); MEAN PLATELET VOLUME 9.9 fL (7.4-10.4); NEUTROPHILS 69.5 % (40-80); RBC 3.26 10x6/uL (4.20-6.10); RDW 15.3 % (11.5-14.5); WBC 7.6 10x3/uL (4.8-10.8)
[2020-03-05 06:50] LABS: PLATELET COUNT 177 10x3/uL (130-400)
[2020-03-05 07:05] LABS: ALBUMIN 2.5 g/dL (3.4-5.0); ALKALINE PHOSPHATASE 96 U/L (30-120); ALT (SGPT) 255 U/L (10-68); BILIRUBIN - TOTAL 0.54 mg/dL (0.2-1.3); CALC OSMOLALITY 266 mosm/kg (275-300); CALCIUM 8.5 mg/dL (8.5-10.1); CARBON DIOXIDE 31.9 mmol/L (21.0-32.0); CHLORIDE - SERUM 98 mmol/L (98-107); CREATININE - SERUM 0.8 mg/dL (0.6-1.3); GLUCOSE 121 mg/dL (74-106); POTASSIUM - SERUM 4.3 mmol/L (3.5-5.1); PROTEIN - SERUM 6.2 g/dL (6.4-8.2); SODIUM 130 mmol/L (136-145); UREA NITROGEN 26 mg/dL (7-18); eGFR NON AFRICAN AMERICAN > 90 mL/min (90-120)
--- NOTE | 2020-03-05 17:26 | NUR ---
1545: R IJ DC'D. MANUAL PRESSURE HELD X 3 MIN. SITE DRESSED WITH 2X2 AND TEGADERM.
[2020-03-06] VITALS (23 sets, daily range): BP systolic 96–145; BP diastolic 40–93
[2020-03-06 06:48] LABS: HEMOGLOBIN 10.1 g/dL (13.5-17.5); MCH 29.9 pg (26.0-34.0); MCHC 31.6 g/dL (31.0-37.0); MCV 94.7 fL (80.0-100.0); MEAN PLATELET VOLUME 9.9 fL (7.4-10.4); RBC 3.38 10x6/uL (4.20-6.10); RDW 15.3 % (11.5-14.5); WBC 7.2 10x3/uL (4.8-10.8)
[2020-03-06 07:16] LABS: ALBUMIN 2.5 g/dL (3.4-5.0); ALKALINE PHOSPHATASE 99 U/L (30-120); ALT (SGPT) 217 U/L (10-68); BILIRUBIN - TOTAL 0.54 mg/dL (0.2-1.3); CALC OSMOLALITY 271 mosm/kg (275-300); CALCIUM 8.7 mg/dL (8.5-10.1); CHLORIDE - SERUM 102 mmol/L (98-107); CREATININE - SERUM 0.8 mg/dL (0.6-1.3); GLUCOSE 114 mg/dL (74-106); POTASSIUM - SERUM 4.5 mmol/L (3.5-5.1); PROTEIN - SERUM 6.2 g/dL (6.4-8.2); SODIUM 134 mmol/L (136-145); UREA NITROGEN 20 mg/dL (7-18); eGFR NON AFRICAN AMERICAN > 90 mL/min (90-120)
--- NOTE | 2020-03-06 21:40 | NUR ---
INITIAL ROUNDS COMPLETED AT 1920 HRS. PT SITTING IN RECLINER. NO DISTRESS NOTED. ASSESSMENT COMPLETED AT 1954 HRS. VSS. ALERT AND ORIENTED TO PERSON, PLACE AND TIME. GARNETT. NO IV ACCESS. LUNGS DIMINISHED IN BASES BILAT. ST PER CM HR 102. ABD SOFT WITH ACTIVE BS NOTED. GARNETT. PALPABLE PERIPHERAL PULSES. LEA HOSE IN USE. TRACE EDEMA TO SCROTUM NOTED. PM FSBS 156. 4 UNITS REG INSULIN GIVEN SUB-Q TO UPPER R ARM. PM MEDS GIVEN. PM SNACK SERVED. PT CURRENTLY SITTING UP IN THE RECLINER. CALL LIGHT WITHIN REACH.
[2020-03-07] VITALS (19 sets, daily range): BP systolic 103–136; BP diastolic 55–90
--- NOTE | 2020-03-07 00:14 | NUR ---
PT SITTING IN RECLINER. VSS. NO DISTRESS NOTED. CALL LIGHT WITHIN REACH.
--- NOTE | 2020-03-07 00:39 | NUR ---
FSBS 85. NO COVERAGE NEEDED. TURKEY SANDWICH GIVEN PER REQUEST. PT HAS C/O MODERATE CP. REFUSES NORCO. WILL ONLY TAKE TYLENOL. TYLENOL 650MG PO GIVEN.
--- NOTE | 2020-03-07 02:01 | NUR ---
SITTING IN RECLINER. NO DISTRESS NOTED.
--- NOTE | 2020-03-07 04:55 | NUR ---
bs 120. n0 coverage needed.
[2020-03-07 05:47] LABS: BASOPHILS 0.3 % (0-2); EOSINOPHILS 2.9 % (0-7); HEMATOCRIT 35.9 % (42.0-54.0); HEMOGLOBIN 11.1 g/dL (13.5-17.5); IMMATURE GRANULOCYTES 0.4 % (0-5); LYMPHOCYTES 14.8 % (15-50); MCH 29.6 pg (26.0-34.0); MCHC 30.9 g/dL (31.0-37.0); MCV 95.7 fL (80.0-100.0); MEAN PLATELET VOLUME 10.2 fL (7.4-10.4); NEUTROPHILS 70.6 % (40-80); RBC 3.75 10x6/uL (4.20-6.10); RDW 15.7 % (11.5-14.5)
[2020-03-07 05:57] LABS: PLATELET COUNT 232 10x3/uL (130-400)
[2020-03-07 06:00] LABS: ALBUMIN 2.7 g/dL (3.4-5.0); ALKALINE PHOSPHATASE 109 U/L (30-120); ALT (SGPT) 197 U/L (10-68); BILIRUBIN - TOTAL 0.53 mg/dL (0.2-1.3); CALC OSMOLALITY 273 mosm/kg (275-300); CALCIUM 8.9 mg/dL (8.5-10.1); CARBON DIOXIDE 34.7 mmol/L (21.0-32.0); CHLORIDE - SERUM 101 mmol/L (98-107); CREATININE - SERUM 0.8 mg/dL (0.6-1.3); GLUCOSE 93 mg/dL (74-106); POTASSIUM - SERUM 4.6 mmol/L (3.5-5.1); PROTEIN - SERUM 6.8 g/dL (6.4-8.2); SODIUM 136 mmol/L (136-145); UREA NITROGEN 17 mg/dL (7-18); eGFR NON AFRICAN AMERICAN > 90 mL/min (90-120)
--- NOTE | 2020-03-07 06:03 | NUR ---
VSS THROUGHOUT NIGHT. PT CONTIUES TO HAVE C/O CP WITH COUGH. REFUSES NORCO, WILL ONLY TAKE TYLENOL. NEEDS MET; WILL CONTINUE TO MONITOR.
--- NOTE | 2020-03-07 07:30 | NUR ---
SHIFT ASSESSMENT COMPLETE. PATIENT UP TO BATHROOM. INCONTINENT OF SOME URINE IN ROUTE. INCONTINENCE BRIEF OFFERED AND TAKEN. SPO2 AT 96-100% O2 DECREASED TO 1 L/M.
--- NOTE | 2020-03-07 10:44 | NUR ---
Rehab Note- Acute Inpatient Rehab prescreen order received. The patient has [employer] insurance and will require a PreAuth prior to an inpatient acute rehab stay. OT Eval ordered with IDT meeting. Will follow at this time and initiate PreAuth process. Thank you for this referral! Sharee Antonio RN Clinical Liaison, [facility] Rehab
--- NOTE | 2020-03-07 11:00 | NUR ---
UP TO BATHROOM NOW DANGLING ON BED. STATES "I CAN'T LAY DOWN. I CAN'T BREATHE WHEN I LAY DOWN. I JUST NEED TO SLEEP." ASSISTED TO RECLINER CHAIR AND TO SUPPORTED POSITION ON OVERBED TABLE.
--- NOTE | 2020-03-07 11:21 | NUR ---
Nutrition Follow-up: POD 7. Pt reports eating ok this AM. Diet: Diabetic PO intake: 68% avg x 5 meals Wt: 187# (03/07) Labs noted: Alb 2.7 Meds noted: Humulin, Florajen, Protonix, Senokot, Colace -Encourage PO intake and honor food preferences within diet restrictions. -RD following.
--- NOTE | 2020-03-07 12:51 | NUR ---
UP OUT OF BED WITHOUT ASSISTANCE. PATIENT IS AGITATED. CONTINUES TO C/O CAN'T LAY DOWN. WANTS TO STAND AT WINDOW. ASSISTED BACK TO BED WITH INSTRUCTIONS TO CALL FOR ASSISTANCE TO GET UP. SCDS ON. QUESTIONED ABOUT PAST HISTORY OF ANXIETY. STATES HE HAS TAKEN CLONIPIN IN THE PAST. DISCUSSED WITH KEM WHO CANNOT FIND ANY HX IN HOME MEDICATIONS. WILL DISCUSS WITH DR. WHEATLEY OR WITH MEDICINE COVERAGE.
--- NOTE | 2020-03-07 13:23 | NUR ---
ORDER FOR XANAX FOR ANXIETY PROVIDED. PATIENT IS SLEEPING AT THIS TIME. RESPIRATIONS DEEP AND REGULAR. SPO2 97% OM 1 L/M. WILL
--- NOTE | 2020-03-07 14:58 | NUR ---
AWAKE. ASSISTED TO DANGLE. XANAX 0.25 MG GIVEN FOR SIGNS OF ANXIETY.
--- NOTE | 2020-03-07 16:50 | NUR ---
IN VERY GOOD SPIRITS. NO C/O PAIN. NO C/O SHORTNESS OF BREATH. O2 WEANED AND OFF AT THIS TIME. SPO2 = 96%. SUPPER MEAL SERVED.
[2020-03-08] VITALS (7 sets, daily range): BP systolic 118–140; BP diastolic 64–79
[2020-03-08 05:33] LABS: HEMATOCRIT 34.5 % (42.0-54.0); HEMOGLOBIN 10.6 g/dL (13.5-17.5); MCH 29.5 pg (26.0-34.0); MCHC 30.7 g/dL (31.0-37.0); MCV 96.1 fL (80.0-100.0); MEAN PLATELET VOLUME 10.1 fL (7.4-10.4); RBC 3.59 10x6/uL (4.20-6.10); RDW 16.1 % (11.5-14.5); WBC 7.5 10x3/uL (4.8-10.8)
[2020-03-08 05:38] LABS: ALBUMIN 2.6 g/dL (3.4-5.0); ALKALINE PHOSPHATASE 100 U/L (30-120); ALT (SGPT) 148 U/L (10-68); BILIRUBIN - TOTAL 0.43 mg/dL (0.2-1.3); CALC OSMOLALITY 278 mosm/kg (275-300); CALCIUM 8.8 mg/dL (8.5-10.1); CHLORIDE - SERUM 103 mmol/L (98-107); CREATININE - SERUM 0.8 mg/dL (0.6-1.3); GLUCOSE 105 mg/dL (74-106); POTASSIUM - SERUM 4.3 mmol/L (3.5-5.1); PROTEIN - SERUM 6.5 g/dL (6.4-8.2); SODIUM 139 mmol/L (136-145); UREA NITROGEN 15 mg/dL (7-18); eGFR NON AFRICAN AMERICAN > 90 mL/min (90-120)
--- NOTE | 2020-03-08 07:35 | NUR ---
sitting up in recliner resting, denies pain or SOB at this time, breakfast tray served, pt sitting up feeding self, call light in reach, will monitor
[2020-03-08] MEDS ORDERED: LOW DOSE ASPIRI81 M1 PO (10:37)
--- NOTE | 2020-03-08 10:40 | NUR ---
DR WHEATLEY AT BEDSIDE TO PULL TPM WIRES
[2020-03-08] MEDS ORDERED: HYDROCODON-ACE1 EAC7 PO (10:41)
--- NOTE | 2020-03-08 12:15 | NUR ---
LUNCH TRAY SERVED, PT SITTING UP IN CHAIR EATING, CALL LIGHT IN REACH
--- NOTE | 2020-03-08 13:30 | NUR ---
PT DISCHARGED HOME WITH SISTER PRESENT, DISCHARGE INSTRUCTIONS GIVEN AND MEDICATIONS EXPLAINED, DR MALDONADO NURSE HERE TO EXPLAIN INSTRUCTIONS, BELONGINGS SENT WITH PATIENT
--- NOTE | 2020-03-08 14:48 | NUR ---
OT NOTE: PT DOING WELL. PERFORMED TOILETING WITH SPV; IN ROOM AMBULATION WITHOUT USE OF WALKER AND MIN ASSIST WITH GAIT BELT. PT AMB INTO HALLWAY WITH GAIT BELT X 75+ FT.. PT MAY BENEFIT FROM USE OF WALKER FOR SUPPORT, HOWEVER, NO LOB NOTED. REQUIRED MIN ASSIST FOR ADLS AND SET UP FOR FEEDING. PT REPORTED THAT HE DECIDED THAT HE WANTED TO GO TO [facility] VS REHAB. DISCUSSED OPTIONS AND NEEDS WITH PT. DISCUSSED WITH GURINDER W[place]. AMADEO RUSSELL, OTR/L [phone]
== END 2020-03-08 13:30 | disposition home or self-care (01) | DRG 219 ==
LOC: D.SDCHOLD 02-26 09:30 → D.CVICU 02-29 05:25 → D.SDCHOLD 02-29 05:25 → D.CVICU 02-29 13:21
PROVIDERS: ADMIT Thoracic Surgery (Cardiothoracic Vascular Surgery); ATTEND Thoracic Surgery (Cardiothoracic Vascular Surgery)
PROC: 5A02210 Assistance with Cardiac Output using Balloon Pump, Continuous (ICD-10-PCS; 2020-02-29)
PROC: 02RF08Z Replacement of Aortic Valve with Zooplastic Tissue, Open Approach (ICD-10-PCS; principal; 2020-02-29 07:30)
PROC: 02UG0JZ Supplement Mitral Valve with Synthetic Substitute, Open Approach (ICD-10-PCS; 2020-02-29 07:30)
PROC: 02UJ0JZ Supplement Tricuspid Valve with Synthetic Substitute, Open Approach (ICD-10-PCS; 2020-02-29 07:30)
DX: I35.0 Nonrheumatic aortic (valve) stenosis (principal); J96.21 Acute and chronic respiratory failure with hypoxia; I42.8 Other cardiomyopathies; I50.22 Chronic systolic (congestive) heart failure; J96.11 Chronic respiratory failure with hypoxia; D62 Acute posthemorrhagic anemia; J81.1 Chronic pulmonary edema; I34.0 Nonrheumatic mitral (valve) insufficiency; I07.1 Rheumatic tricuspid insufficiency; J44.9 Chronic obstructive pulmonary disease, unspecified; Z99.81 Dependence on supplemental oxygen; K21.9 Gastro-esophageal reflux disease without esophagitis; Z72.0 Tobacco use; F41.9 Anxiety disorder, unspecified; E88.09 Other disorders of plasma-protein metabolism, not elsewhere classified; E87.6 Hypokalemia; D69.6 Thrombocytopenia, unspecified; N48.89 Other specified disorders of penis; N47.2 Paraphimosis